=== PATIENT | female | born 1990 | race Caucasian/White ===

== ENCOUNTER 2017-06-14 13:22 | Outpatient (CLI) | payer OTHER ==
[2016-10-15 17:49] VITALS: BP 125/74
== END 2017-06-14 14:07 ==
LOC: CARD 13:22
PROVIDERS: ATTEND Internal Medicine Cardiovascular Disease
DX: I42.9 Cardiomyopathy, unspecified (principal); E66.9 Obesity, unspecified; G47.30 Sleep apnea, unspecified; F17.219 Nicotine dependence, cigarettes, with unspecified nicotine-induced disorders
CPT/HCPCS: 99213